=== PATIENT | female | born 2000 | race Two or more races ===

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

== ENCOUNTER 2018-08-23 13:05 | Emergency (ER) | payer OTHER ==
[~2018-08-23] VITALS: Ht 165.1 cm; Wt 56.7 kg
== END 2018-08-23 15:23 | disposition home or self-care (01) ==
LOC: ER 13:05
DX: L53.8 Other specified erythematous conditions (principal)

== ENCOUNTER 2019-09-13 12:02 | Emergency (ER) | payer OTHER ==
[~2019-09-13] VITALS: Ht 167.6 cm; Wt 61.2 kg
== END 2019-09-13 14:04 | disposition home or self-care (01) ==
LOC: ER 12:02
DX: R11.0 Nausea (principal)

== ENCOUNTER 2019-09-29 20:32 | Emergency (ER) | payer OTHER ==
[~2019-09-29] VITALS: Ht 167.6 cm; Wt 59.0 kg
[2019-10-01] MEDS ORDERED: ORASEP SPRAY30 ML MM (08:09)
== END 2019-09-30 01:13 | disposition home or self-care (01) ==
LOC: ER 20:32
DX: J03.80 Acute tonsillitis due to other specified organisms (principal); J31.2 Chronic pharyngitis; B96.0 Mycoplasma pneumoniae [M. pneumoniae] as the cause of diseases classified elsewhere

== ENCOUNTER 2019-10-01 02:42 | Emergency (ER) | payer OTHER ==
[~2019-10-01] VITALS: Ht 167.6 cm; Wt 59.0 kg
[2019-10-01] MEDS ORDERED: ORASEP SPRAY30 ML MM (08:09)
== END 2019-10-01 08:55 | disposition home or self-care (01) ==
LOC: ER 02:42
DX: J03.80 Acute tonsillitis due to other specified organisms (principal)

== ENCOUNTER 2019-10-29 17:32 | Emergency (ER) | payer OTHER ==
[~2019-10-29] VITALS: Ht 167.6 cm; Wt 59.0 kg
[~2019-10-29 17:32] MED LIST changes: +ORASEP SPRAY30 ML MM
== END 2019-10-29 20:50 | disposition home or self-care (01) ==
LOC: ER 17:32
DX: R11.0 Nausea (principal); R42 Dizziness and giddiness; Z33.1 Pregnant state, incidental

== ENCOUNTER 2020-08-31 12:14 | Emergency (ER) | payer OTHER ==
[~2020-08-31] VITALS: Ht 167.6 cm; Wt 61.2 kg
[2020-08-31] MEDS ORDERED: PRENATABS FA T1 EACH (13:40)
[2020-08-31] MEDS ORDERED: DUI500 PO (15:42)
== END 2020-08-31 18:07 | disposition home or self-care (01) ==
LOC: ER 12:14
DX: N61.0 Mastitis without abscess (principal)

== ENCOUNTER 2021-03-21 11:32 | Emergency (ER) | payer OTHER ==
[~2021-03-21] VITALS: Ht 165.1 cm; Wt 56.7 kg
[~2021-03-21 11:32] MED LIST changes: +DUI500 PO; +PRENATABS FA T1 EACH
== END 2021-03-21 12:48 | disposition home or self-care (01) ==
LOC: ER 11:32
DX: N61.0 Mastitis without abscess (principal)

== ENCOUNTER 2021-10-23 10:05 | Emergency (ER) | payer OTHER ==
[~2021-10-23] VITALS: Ht 165.1 cm; Wt 53.5 kg
== END 2021-10-23 14:58 | disposition home or self-care (01) ==
LOC: ER 10:05
DX: N91.2 Amenorrhea, unspecified (principal)